=== PATIENT | female | born 1960 | race Caucasian/White ===

== ENCOUNTER 2019-11-07 12:27 | Emergency (ER) | payer OTHER ==
--- NOTE | 2019-11-07 16:42 | ER ---
Nurse's Notes [facility] Name: Liseth Montanez Age: 58 yrs Sex: Female : 1960 Arrival Date: 11/07/2019 Time: 12:29 Bed 24 Private MD: Diagnosis: Finger Laceration Presentation: 11/06 12:36 Chief complaint: Patient states: Report cut left index finger with kitchen knife while jl7 cutting meat about an hour ago, bleeding controlled. Coronavirus screen: Proceed with normal triage. Patient denies a cough. Patient denies shortness of breath or difficulty breathing. Patient denies measured and/or subjective temperature greater than 100.4F prior to today's visit. Patient denies travel on a cruise ship or to a country the [facility] currently lists as an affected area. Patient denies contact with known and/or suspected case of COVID-19. Ebola Screen: No symptoms or risks identified at this time. Initial Sepsis Screen: Does the patient meet any 2 criteria? No. Patient's initial sepsis screen is negative. Does the patient have a suspected source of infection? No. Patient's initial sepsis screen is negative. Risk Assessment: Do you want to hurt yourself or someone else? Patient reports no desire to harm self or others. Onset of symptoms was November 07, 2019. Care prior to arrival: Bleeding of injury controlled. 12:36 Method Of Arrival: Ambulatory 7 12:36 Acuity: MONISHA 4 jl7 Triage Assessment: 12:42 General: Appears in no apparent distress. uncomfortable, Behavior is calm, cooperative, jl7 appropriate for age. Pain: Denies pain. Injury Description: Laceration sustained to palmar aspect of proxima; phalanx of right index finger is superficial, 0.5 to 2.5 cm long, was sustained 1-2 hours ago. a small amount of bleeding noted at this time. Historical: - Allergies: 12:42 No Known Allergies; jl7 - Home Meds: 12:42 sumatriptan oral oral [Active]; jl7 - PMHx: 12:42 Migraines; jl7 - PSHx: 12:42 Tubal ligation; jl7 - Immunization history:: Adult Immunizations up to date. - Social history:: Smoking status: Patient denies any tobacco usage or history of. Screenin:05 Abuse screen: Denies threats or abuse. Denies injuries from another. Nutritional ls4 screening: No deficits noted. Tuberculosis screening: No symptoms or risk factors identified. Fall Risk None identified. Assessment: 14:06 General: Appears in no apparent distress. comfortable, Behavior is calm, cooperative. ls4 Neuro: No deficits noted. Cardiovascular: No deficits noted. Respiratory: No deficits noted. Vital Signs: 12:36 BP 117 / 57; Pulse 64; Resp 17; Temp 98.1; Pulse Ox 98% ; Weight 78.93 kg; Height 5 ft. jl7 7 in. (170.18 cm); Pain 0/10; 12:36 Body Mass Index 27.25 (78.93 kg, 170.18 cm) jl7 ED Course: 12:29 Patient arrived in ED. ag5 12:41 Triage completed. jl7 12:42 Arm band placed on right wrist. Patient placed in waiting room, Patient notified of jl7 wait time. 13:59 Jordin Campos PA is PHCP. [facility] 13:59 Mauricio Rodriguez MD is Attending Physician. [facility] 14:05 Debbie Santoyo, RN is Primary Nurse. ls4 14:05 Patient has correct armband on for positive identification. Bed in low position. Call ls4 light in reach. Side rails up X 1. 15:59 No apparent distress. Resting quietly. ls4 17:27 No provider procedures requiring assistance completed. ls4 Administered Medications: 15:38 Drug: Marcaine (0.5 %) 10 ml {Note: per jordin campos .} Volume: 10 ml; Route: ls4 Infiltration; Outcome: 16:41 Discharge ordered by . [facility] 17:26 Discharged to home ambulatory, with family. ls4 17:26 Condition: stable 17:26 Discharge instructions given to patient, family, Instructed on discharge instructions, follow up and referral plans. medication usage, Demonstrated understanding of instructions, follow-up care, medications, wound care. 17:28 Patient left the ED. ls4 Signatures: Jordin Campos PA PA jmm Leal, Jahala, RN RN jl7 Debbie Santoyo, RN RN ls4 Molly Domínguez 5
--- NOTE | 2019-11-07 16:42 | EDPHYS ---
Physician Documentation [facility] Name: Liseth Montanez Age: 58 yrs Sex: Female : 1960 Arrival Date: 11/07/2019 Time: 12:29 Bed 24 Private MD: ED Physician Mauricio Rodriguez HPI: 11/06 14:40 This 58 yrs old Female presents to ER via Ambulatory with complaints of jmm Finger Laceration. 14:40 The patient or guardian reports injury, pain. Onset: The symptoms/episode jmm began/occurred acutely, just prior to arrival. This is a 58 year old female with a history of migraines that presents to the ED with complaints of left index finger laceration when she accidently cut herself with a knife. Denies other injury. . Historical: - Allergies: 12:42 No Known Allergies; jl7 - Home Meds: 12:42 sumatriptan oral oral [Active]; jl7 - PMHx: 12:42 Migraines; jl7 - PSHx: 12:42 Tubal ligation; jl7 - Immunization history:: Adult Immunizations up to date. - Social history:: Smoking status: Patient denies any tobacco usage or history of. ROS: 14:40 Constitutional: Negative for fever, chills, and weight loss, Cardiovascular: Negative jmm for chest pain, palpitations, and edema, Respiratory: Negative for shortness of breath, cough, wheezing, and pleuritic chest pain. 14:40 Skin: Positive for laceration(s). 14:40 All other systems are negative. Exam: 14:40 Constitutional: This is a well developed, well nourished patient who is awake, alert, jmm and in no acute distress. Cardiovascular: Regular rate and rhythm. No edema appreciated Respiratory: Normal respirations, no respiratory distress appreciated 14:40 Head/Face: atraumatic. Eyes: EOMI, no conjunctival erythema appreciated Neck: Trachea midline, Supple Chest/axilla: Normal chest wall appearance and motion. Cardiovascular: Regular rate and rhythm. No edema appreciated Abdomen/GI: Non distended, soft Back: Normal ROM MS/ Extremity: Moves all extremities, no obvious deformities appreciated, no edema noted to the lower extremities Neuro: Awake and alert, normal gait Psych: Behavior is normal, Mood is normal, Patient is cooperative and pleasant 14:40 Musculoskeletal/extremity: 1 cm laceration noted to the palmar surface of the left index finger. 14:40 Skin: injury, laceration(s), the wound is approximately 1 cm(s). 14:40 Neuro: Orientation: is normal, Mentation: is normal, Memory: is normal. 14:40 Psych: Behavior/mood is pleasant, cooperative. Vital Signs: 12:36 BP 117 / 57; Pulse 64; Resp 17; Temp 98.1; Pulse Ox 98% ; Weight 78.93 kg; Height 5 ft. jl7 7 in. (170.18 cm); Pain 0/10; 12:36 Body Mass Index 27.25 (78.93 kg, 170.18 cm) jl7 Laceration: 16:40 Wound Repair of 1cm ( 0.4in ) subcutaneous laceration to palmar aspect of proxima; jmm phalanx of right index finger. Distal neuro/vascular/tendon intact. Anesthesia: Local anesthetic administered with 3 mls of 0.5% marcaine. Wound prep: Simple cleansing with betadine by me. Skin closed with 3 5-0 Prolene using simple sutures and sterile technique. Patient tolerated well. MDM: 14:31 Patient medically screened. [facility] 16:40 Data reviewed: vital signs, nurses notes. Counseling: I had a detailed discussion with tonya the patient and/or guardian regarding: the historical points, exam findings, and any diagnostic results supporting the discharge/admit diagnosis, the need for outpatient follow up, to return to the emergency department if symptoms worsen or persist or if there are any questions or concerns that arise at home. ED course: Patient given wound infection return precautions. Patient understood and agrees with the plan of care. . Administered Medications: 15:38 Drug: Marcaine (0.5 %) 10 ml {Note: per jordin escamilla .} Volume: 10 ml; Route: ls4 Infiltration; Disposition: 11/07 08:45 Co-signature as Attending Physician, Mauricio Rodriguez MD I agree with the assessment and kdr plan of care. Disposition: 11/07/19 16:41 Discharged to Home. Impression: Finger Laceration. - Condition is Stable. - Discharge Instructions: Laceration Care, Adult. - Medication Reconciliation Form, Thank You Letter, Antibiotic Education, Prescription Opioid Use form. - Follow up: Private Physician; When: 2 - 3 days; Reason: Recheck today's complaints, Continuance of care, Re-evaluation by your physician. Signatures: Mauricio Rodriguez MD MD kdr Mickail, Joel, PA PA jmm Leal, Jahala RN RN jl7 Debbie Santoyo RN RN ls4 Corrections: (The following items were deleted from the chart) 11/06 17:28 16:41 11/07/2019 16:41 Discharged to Home. Impression: Finger Laceration. Condition is ls4 Stable. Forms are Medication Reconciliation Form, Thank You Letter, Antibiotic Education, Prescription Opioid Use. Follow up: Private Physician; When: 2 - 3 days; Reason: Recheck today's complaints, Continuance of care, Re-evaluation by your physician. [email or web address]
[2019-11-07 17:34] VITALS: BP 117/57; TEMP 98.1; O2SAT 98
== END 2019-11-07 17:28 | disposition home or self-care (01) ==
LOC: ER 12:27
PROC: 0JQJ0ZZ Repair Right Hand Subcutaneous Tissue and Fascia, Open Approach (ICD-10-PCS; principal; 2019-11-07)
DX: S61.211A Laceration without foreign body of left index finger without damage to nail, initial encounter (principal); W26.0XXA Contact with knife, initial encounter; Y93.G3 Activity, cooking and baking; Y92.010 Kitchen of single-family (private) house as the place of occurrence of the external cause
CPT/HCPCS: 99283